=== PATIENT | male | born 1980 | race Two or more races ===

== ENCOUNTER 2022-03-03 22:37 | Emergency (ER) | payer SELFPAY ==
[~2022-03-03] VITALS: Ht 188 cm; Wt 104.5 kg
[2022-03-03 22:38] VITALS: BP 120/72
== END 2022-03-04 01:32 | disposition left against medical advice (07) ==
LOC: M ED 22:37
DX: Z53.21 Procedure and treatment not carried out due to patient leaving prior to being seen by health care provider (principal)